=== PATIENT | female | born 1950 | race Caucasian/White ===

== ENCOUNTER 2025-01-07 08:44 | Inpatient (IN) | payer MEDICARE, SELFPAY ==
[2025-01-07] VITALS (36 sets, daily range): BP systolic 115–171; BP diastolic 53–92; PULSE 59–81; RESP 7–20; TEMP 36.1–36.2; O2SAT 94–98; BMI 28.9
[2025-01-07 10:02] LABS: Hemoglobin 7.1 g/dL (12.0-16.0); Mean Corpuscular HGB Conc 35.6 % (30-36); Mean Corpuscular Hemoglobin 30.8 PG (26-34); Mean Corpuscular Volume 86.7 fL (80-100); Platelet Count 130 X10^3/uL (150-400)
[2025-01-07 10:10] LABS: Hematocrit 19.9 % (36-46)
[2025-01-07] MEDS: SODIUM CHLORIDE 0.9% 1,000 ML 50 ML IV (10:11)
[2025-01-07 10:32] LABS: Blood Urea Nitrogen 24 mg/dL (7-17); Calcium 9.9 mg/dL (8.4-10.2); Carbon Dioxide 19 mmol/L (22-32); Chloride 95 mmol/L (98-107); Estimated Glomerular Filt Rate > 60 mL/min (>60); Glucose 103 mg/dL (70-99); HEMOLYSIS < 15 (0-50); Potassium 4.6 mmol/L (3.4-5.1)
[2025-01-07 10:39] LABS: Sodium 119 mmol/L (137-145)
[2025-01-07 13:45] LABS: MRSA (Nasal) PCR NOT DETECTED (Not Detect)
[2025-01-07 14:09] LABS: Hematocrit 22.9 % (36-46); Hemoglobin 8.0 g/dL (12.0-16.0)
[2025-01-07 14:20] LABS: Blood Urea Nitrogen 25 mg/dL (7-17); Calcium 10.8 mg/dL (8.4-10.2); Carbon Dioxide 21 mmol/L (22-32); Chloride 93 mmol/L (98-107); Estimated Glomerular Filt Rate > 60 mL/min (>60); Glucose 104 mg/dL (70-99); HEMOLYSIS < 15 (0-50); Potassium 5.1 mmol/L (3.4-5.1)
--- NOTE | 2025-01-07 14:22 | PM.HP.1 ---
History of Present Illness History of Present Illness Date Patient Seen: 01/07/25 Time Patient Seen: 10:00 Chief complaint: Hyponatremia Narrative: She was a 74-year-old female with a history of recurrent hyponatremia. She was seen at [facility] Emergency Department and transferred here as they had no available beds. Her sodium was a proximally 117. She lives in a local apartment with her . She had recently been discharged from inpatient rehab in [place] and had follow up blood tests drawn 2 days ago. These revealed a severe hyponatremia. She does have a history of recurrent hyponatremia going back several years. She was been eating very little over the last several weeks and having general failure to thrive and weakness. She had a TAVR and coronary stent in 2023 in [facility]. She was admitted to [place] recently for hyponatremia and had another admission to [facility] with a component of hyponatremia as well. Family is working on trying to centralize her care in 1 healthcare system, they are going to try to work with [facility]. The patient also has some cognitive impairment and is not very talkative. She denies any pain concerns. She does use a walker, or states that she has been doing relatively well with this. She does have chronic leg edema going back several years. She also has chronic anemia in his taking iron syrup, and iron infusions in the past. There was a discussion regarding recommendations for endoscopy when she was recently admitted at [facility]. She recently had her Brilinta discontinued by Cardiology which should allow for an endoscopy in the near future. [facility] Social History (Updated 01/07/25 @ 14:26 by Jamin Luna MD) marital status: details: Lives in [facility] with her . Her daughter is an urgent care physician assistant [facility] Medications and Allergies Home Medications ?Medication ?Instructions ?Recorded ?Confirmed ?Type acetaminophen 325 mg tablet 650 mg PO Q6H PRN pain 01/07/25 01/07/25 History (Aminofen) albuterol 90 mcg/actuation aerosol 90 mcg inhalation .Q4 PRN wheezing 01/07/25 01/07/25 History inhaler aspirin 81 mg capsule 81 mg PO DAILY 01/07/25 01/07/25 History calcium carbonate (Calcium 500) 1,000 mg PO DAILY 01/07/25 01/07/25 History cephalexin 250 mg capsule 250 mg PO DAILY 01/07/25 01/07/25 History cholecalciferol (vitamin D3) 25 1,000 unit PO DAILY 01/07/25 01/07/25 History mcg (1,000 unit) capsule doxazosin 4 mg tablet 4 mg PO DAILY 01/07/25 01/07/25 History escitalopram oxalate 5 mg tablet 5 mg PO DAILY 01/07/25 01/07/25 History (Lexapro) ferrous sulfate 15 mg PO DAILY 01/07/25 01/07/25 History furosemide 20 mg tablet 20 mg PO QAM 01/07/25 01/07/25 History hydrocodone 5 mg-acetaminophen 325 1 tab PO Q4H PRN moderate pain 01/07/25 01/07/25 History mg tablet levothyroxine 50 mcg tablet 50 mcg PO DAILY 01/07/25 01/07/25 History lidocaine 4 % topical patch 1 patch topical DAILY 01/07/25 01/07/25 History magnesium oxide 400 mg PO BEDTIME 01/07/25 01/07/25 History methocarbamol 500 mg tablet 500 mg PO BID 01/07/25 01/07/25 History Held on 01/07/25. Instructions: pt did not tolerate, sleepiness metoprolol succinate 25 mg 25 mg PO DAILY 01/07/25 01/07/25 History tablet,extended release 24 hr nifedipine 30 mg tablet,extended 30 mg PO DAILY 01/07/25 01/07/25 History release 24 hr nifedipine 60 mg tablet,extended 60 mg PO DAILY 01/07/25 01/07/25 History release 24 hr omeprazole 20 mg capsule,delayed 20 mg PO DAILY 01/07/25 01/07/25 History release rosuvastatin 20 mg tablet 20 mg PO ONCE PM 01/07/25 01/07/25 History valsartan 160 mg tablet 160 mg PO BID 01/07/25 01/07/25 History Allergies Allergy/AdvReac Type Severity Reaction Status Date / Time amoxicillin Allergy Severe tongue Verified 01/07/25 11:17 swelling ciprofloxacin Allergy tongue Verified 01/07/25 11:17 swelling codeine Allergy Verified 01/07/25 11:17 fluticasone Allergy Verified 01/07/25 11:17 Penicillins Allergy tongue Verified 01/07/25 11:17 swelling salmeterol Allergy Verified 01/07/25 11:17 Sulfa (Sulfonamide Allergy tongue Verified 01/07/25 11:17 Antibiotics) swelling atenolol AdvReac Verified 01/07/25 11:17 azithromycin AdvReac Verified 01/07/25 11:17 clopidogrel AdvReac Verified 01/07/25 11:17 diclofenac AdvReac Verified 01/07/25 11:17 hydralazine AdvReac Verified 01/07/25 11:17 ibuprofen AdvReac Verified 01/07/25 11:17 methocarbamol (From Robaxin) AdvReac Drowsy Verified 01/07/25 11:17 Review of Systems Review of Systems Narrative: All else reviewed and otherwise unremarkable except as noted in the history and physical. Exam Vital Signs (past 8 hours): - 01/07/25 09:20 01/07/25 10:02 01/07/25 10:44 Temperature 96.9 F L Pulse Rate 69 Respiratory Rate 15 Blood Pressure Pulse Oximetry 97 Oxygen Delivery Method Room Air 01/07/25 11:00 01/07/25 11:00 01/07/25 12:00 Temperature Pulse Rate 70 72 Respiratory Rate 17 17 Blood Pressure 132/64 Pulse Oximetry 97 98 Oxygen Delivery Method 01/07/25 12:00 01/07/25 12:30 01/07/25 13:00 Temperature Pulse Rate 80 Respiratory Rate 20 Blood Pressure 145/67 H 165/70 H Pulse Oximetry 96 Oxygen Delivery Method 01/07/25 13:00 01/07/25 13:30 01/07/25 14:00 Temperature Pulse Rate 78 79 79 Respiratory Rate 16 19 18 Blood Pressure Pulse Oximetry 96 95 96 Oxygen Delivery Method 01/07/25 14:00 Temperature Pulse Rate Respiratory Rate Blood Pressure 159/92 H Pulse Oximetry Oxygen Delivery Method Oxygen Delivery Method Room Air Narrative Exam Narrative: NAD, alert and oriented, fluent speech, calm. Normocephalic skull, EOMI, anicteric sclera, symmetric pupils. Oropharynx unremarkable, no droop. Neck supple, midline trachea, no adenopathy. Lungs clear, normal rate and effort. Heart regular, no murmur gallop or rub. Abdomen is soft, non distended and non tender. Extremities: Bilateral leg edema. Skin is free of rash or lesions. Joints are not swollen or deformed. Judgment appears to be normal. Objective Labs 01/07/25 09:55 01/07/25 09:55 Labs: Laboratory Results - last 24 hr 01/07/25 01/07/25 09:55 11:39 WBC 4.4 L RBC 2.30 L Hgb 7.1 L Hct 19.9 L* MCV 86.7 MCH 30.8 MCHC 35.6 RDW 16.5 H Plt Count 130 L Sodium 119 L* Potassium 4.6 Chloride 95 L Carbon Dioxide 19 L BUN 24 H Creatinine 0.77 Estimated GFR > 60 BUN/Creatinine Ratio 31.2 H Glucose 103 H Calcium 9.9 Nasal Screen MRSA (PCR) Not detected Assessment & Plan Assessment & Plan narrative: 1. Hyponatremia, present on admission and active. 2. Cognitive impairment, stable. 3. CAD with history of stenting, stable. 4. Chronic recurrent anemia and iron-deficiency, active. 5. Aortic stenosis with history of TAVR, 2023. Plan: -we will treat with saline at 50 mL/hour for solute deficiency and monitor BMP q.4 hours. -we will also monitor hemoglobin, anticipate a transfusion. She received 2 units of packed cells while at [facility] and a recent admission. -continue all other medications as able. -PT assessment, OT assessment. Anticipate that she will require transition to a rehabilitation center as she was had very great difficulty at home with her ongoing medical problems. Full code. Anticipate 2 midnights in the hospital, supports inpatient status. Has been and daughter proxy decision makers. Time-Based Coding :: 35 min spent with patient and on the chart (including review of chart, obtaining history, exam, reviewing outside data, placing orders, documenting exam and treatment plan, and counseling patient) on 01/07. Quality MIPS - Admit I confirm the patient?s Advance Care Plan is present, Code status is documented, Surrogate decision maker is in patient?s record [If Yes, STOP here]: Yes
[2025-01-07] MEDS: ACETAMINOPHEN 325 MG TABLET 650 MG PO (14:27)
[2025-01-07 14:33] LABS: Sodium 119 mmol/L (137-145)
[2025-01-07] MEDS: HYDROCODONE/ACET 5/325 TABLET 1 TAB PO ×2 (14:57→20:57)
[2025-01-07] MEDS: ESCITALOPRAM 10 MG TABLET 5 MG PO (15:22)
[2025-01-07] MEDS: VALSARTAN 80 MG TABLET 160 MG PO ×2 (15:22→20:56)
[2025-01-07] MEDS: METOPROLOL ER 25 MG TABLET PO (15:22)
[2025-01-07 15:49] LABS: Blood Urea Nitrogen 24 mg/dL (7-17); Calcium 10.6 mg/dL (8.4-10.2); Carbon Dioxide 21 mmol/L (22-32); Chloride 94 mmol/L (98-107); Estimated Glomerular Filt Rate > 60 mL/min (>60); Glucose 101 mg/dL (70-99); HEMOLYSIS < 15 (0-50); Potassium 4.8 mmol/L (3.4-5.1)
[2025-01-07 16:00] LABS: Sodium 118 mmol/L (137-145)
[2025-01-07 16:45] LABS: Appearance Urine UA SL CLOUDY; Bilirubin Urine UA NEGATIVE (NEGATIVE); Color Urine UA YELLOW; Glucose Urine UA NEGATIVE (Negative); Ketones Urine UA NEGATIVE (NEGATIVE); Leukocyte Esterase Urine UA 2+ (NEGATIVE); Nitrite Urine UA NEGATIVE (Negative); Occult Blood Urine UA 1+ (Negative); Protein Urine UA 1+ (Negative); Specific Gravity Urine UA 1.010 (1.000-1.035); Urobilinogen Urine UA 0.2 E.U./dL (0.2)
[2025-01-07 16:46] LABS: pH Urine UA 6.0 (4.5-8.0)
[2025-01-07 16:55] LABS: Culture Indicated Urine Specimen Cultured
[2025-01-07 19:37] LABS: Blood Urea Nitrogen 23 mg/dL (7-17); Calcium 10.5 mg/dL (8.4-10.2); Carbon Dioxide 21 mmol/L (22-32); Chloride 94 mmol/L (98-107); Estimated Glomerular Filt Rate > 60 mL/min (>60); Glucose 100 mg/dL (70-99); HEMOLYSIS < 15 (0-50); Potassium 4.9 mmol/L (3.4-5.1); Sodium 120 mmol/L (137-145)
[2025-01-07] MEDS: ATORVASTATIN 20 MG TABLET 40 MG PO (20:56)
[2025-01-07] MEDS: HEPARIN 5,000 UNIT/ML VIAL 5000 UNIT SUBCUT (20:56)
[2025-01-07 23:37] LABS: Blood Urea Nitrogen 23 mg/dL (7-17); Calcium 10.3 mg/dL (8.4-10.2); Carbon Dioxide 22 mmol/L (22-32); Chloride 96 mmol/L (98-107); Estimated Glomerular Filt Rate > 60 mL/min (>60); Glucose 84 mg/dL (70-99); HEMOLYSIS < 15 (0-50); Potassium 4.8 mmol/L (3.4-5.1)
[2025-01-07 23:38] LABS: Sodium 119 mmol/L (137-145)
[2025-01-08] VITALS (60 sets, daily range): BP systolic 142–182; BP diastolic 60–91; PULSE 58–98; RESP 8–24; TEMP 36.8–37.1; O2SAT 93–99
[2025-01-08] MEDS: SODIUM CHLORIDE 0.9% 1,000 ML 75 ML IV (01:39)
[2025-01-08] MEDS: HYDROCODONE/ACET 5/325 TABLET 1 TAB PO ×3 (03:05→20:17)
[2025-01-08] MEDS: ALBUTEROL 2.5 MG/3 ML NEB (ADULT) INH (03:39)
[2025-01-08] MEDS: PANTOPRAZOLE DR 20 MG TABLET PO (05:48)
[2025-01-08] MEDS: ACETAMINOPHEN 325 MG TABLET 650 MG PO ×2 (05:48→16:43)
[2025-01-08] MEDS: LEVOTHYROXINE 50 MCG TABLET PO (05:48)
[2025-01-08 07:05] LABS: Hematocrit 21.3 % (36-46); Hemoglobin 7.5 g/dL (12.0-16.0); Mean Corpuscular HGB Conc 35.4 % (30-36); Mean Corpuscular Hemoglobin 31.0 PG (26-34); Mean Corpuscular Volume 87.7 fL (80-100); Platelet Count 154 X10^3/uL (150-400)
[2025-01-08 07:13] LABS: Blood Urea Nitrogen 22 mg/dL (7-17); Calcium 10.4 mg/dL (8.4-10.2); Carbon Dioxide 21 mmol/L (22-32); Chloride 96 mmol/L (98-107); Estimated Glomerular Filt Rate > 60 mL/min (>60); Glucose 71 mg/dL (70-99); HEMOLYSIS 27 (0-50); Potassium 4.7 mmol/L (3.4-5.1); Sodium 120 mmol/L (137-145)
[2025-01-08] MEDS: VALSARTAN 80 MG TABLET 160 MG PO ×2 (08:45→20:38)
[2025-01-08] MEDS: ESCITALOPRAM 10 MG TABLET 5 MG PO (08:45)
[2025-01-08] MEDS: ASPIRIN EC 81 MG TABLET PO (08:45)
[2025-01-08] MEDS: HEPARIN 5,000 UNIT/ML VIAL 5000 UNIT SUBCUT ×2 (08:46→20:17)
[2025-01-08] MEDS: LIDOCAINE 5% PATCH 1 EACH TOP (08:46)
[2025-01-08] MEDS: METOPROLOL ER 25 MG TABLET PO (08:46)
--- NOTE | 2025-01-08 08:59 | P.PN_ITS ---
Subjective Subjective Interval history: Summary: She is a 74-year-old female with a history of recurrent hyponatremia. She was seen at [facility] Emergency Department and transferred here as they had no available beds. Her sodium was a proximally 117. She lives in a local apartment with her . She had recently been discharged from inpatient rehab in [place] and had follow up blood tests drawn 2 days ago. These revealed a severe hyponatremia. She does have a history of recurrent hyponatremia going back several years. She was been eating very little over the last several weeks and having general failure to thrive and weakness. She had a TAVR and coronary stent in 2023 in [facility]. She was admitted to [place] recently for hyponatremia and had another admission to [facility] with a component of hyponatremia as well. Family is working on trying to centralize her care in 1 healthcare system, they are going to try to work with [facility]. The patient also has some cognitive impairment and is not very talkative. She denies any pain concerns. She does use a walker, or states that she has been doing relatively well with this. She does have chronic leg edema going back several years. She also has chronic anemia in his taking iron syrup, and iron infusions in the past. There was a discussion regarding recommendations for endoscopy when she was recently admitted at [facility]. She recently had her Brilinta discontinued by Cardiology which should allow for an endoscopy in the near future. SIGNIFICANT EVENT: She developed probable flash pulmonary edema at about 1300 on January 08. She required oxygen for sats near 80%. Chest x-ray was suggestive of mild pulmonary edema. She was diuresed and improved rapidly. This happened after receiving saline at 50 mL an hour overnight. Echo reveals diastolic heart failure from [facility] and a repeat EF was obtained this morning with results pending. My wet read looks like she still has normal ventricular function. Discussion with Nephrology: I discussed this with [facility] Nephrology who reviewed her case at [facility]. At that time she presented with ANNEL and had a creatinine of 3.0. She also had evidence of SIADH with a urine sodium of 38 and osmolality 331 with a serum sodium of 129. Recommendations were to try diuresis with Lasix 20 IV b.i.d. and add urea powder 15 g daily. Unfortunately powders not available at this hospital. Fluid restriction at 1 L day was also recommended. S: Her breathing has improved after Lasix, she has some right knee pain. No other complaints. Exam Vital Signs (past 8 hours): - 01/08/25 01:00 01/08/25 01:01 01/08/25 01:01 Pulse Rate 58 L 60 Respiratory Rate 8 L 8 L Blood Pressure 153/66 H Pulse Oximetry 96 96 01/08/25 01:30 01/08/25 02:00 01/08/25 02:00 Pulse Rate 59 L 64 Respiratory Rate 8 L 8 L Blood Pressure 155/91 H Pulse Oximetry 96 96 01/08/25 02:30 01/08/25 03:00 01/08/25 03:00 Pulse Rate 64 72 Respiratory Rate 9 L 10 L Blood Pressure 182/85 H Pulse Oximetry 96 95 01/08/25 03:02 01/08/25 03:02 01/08/25 03:30 Pulse Rate 73 75 Respiratory Rate 11 L 17 Blood Pressure 158/69 H Pulse Oximetry 95 93 01/08/25 03:40 01/08/25 04:00 01/08/25 04:01 Pulse Rate 69 63 65 Respiratory Rate 9 L 9 L 8 L Blood Pressure Pulse Oximetry 96 95 94 01/08/25 04:01 01/08/25 04:30 01/08/25 05:00 Pulse Rate 62 70 Respiratory Rate 11 L 13 Blood Pressure 149/67 H Pulse Oximetry 95 98 01/08/25 05:00 01/08/25 05:30 01/08/25 06:00 Pulse Rate 73 Respiratory Rate 11 L Blood Pressure 155/67 H 156/72 H Pulse Oximetry 97 01/08/25 06:00 01/08/25 06:30 01/08/25 07:00 Pulse Rate 69 64 Respiratory Rate 8 L 12 Blood Pressure 142/67 H Pulse Oximetry 97 96 01/08/25 07:00 01/08/25 07:30 01/08/25 08:00 Pulse Rate 66 65 66 Respiratory Rate 11 L 12 9 L Blood Pressure Pulse Oximetry 96 96 97 01/08/25 08:00 01/08/25 08:30 01/08/25 08:46 Pulse Rate 80 78 Respiratory Rate 22 Blood Pressure 153/62 H 153/62 H Pulse Oximetry Oxygen Delivery Method Room Air Narrative Exam Narrative: NAD, alert and oriented. Fluent speech. On oxygen. Lungs are clear, normal rate and effort. Heart is regular, no murmur gallop or rub. Abdomen is soft, non distended. Extremities are free of edema. Objective Imaging ECHO:: Radiologist's impression: Pending. Chest x-ray: My impression: Possible mild pulmonary edema. Radiologist's impression: Moderate bilateral diffuse peribronchial thickening with patchy lower lobe opacities, some of which may be related expiratory result; however, bronchitis, viral infection, bronchopneumonia, asthma or other process should be considered. Mildly enlarged cardiopericardial silhouette. Prominent ling, pulmonary vascular congestion and/or hilar lymph nodes. Moderate calcifications of the aortic arch. Dual lead pacemaker with left-sided battery pack and aortic valve endograft prosthesis. Moderate degenerative changes bilateral shoulders and thoracic spine with several calcifications surrounding the right shoulder commonly loose bodies or other heterotopic calcifications. No pneumothorax, no pleural effusion, no lobar consolidation. IMPRESSION: Peribronchial thickening and patchy opacities as discussed above new. Other findings as above. Follow-up suggested. If symptoms persist or worsen, CT chest could be performed. Labs 01/08/25 04:30 01/08/25 12:10 Labs: Laboratory Results - last 24 hr 01/07/25 01/07/25 01/07/25 09:55 11:39 13:58 WBC 4.4 L RBC 2.30 L Hgb 7.1 L 8.0 L Hct 19.9 L* 22.9 L MCV 86.7 MCH 30.8 MCHC 35.6 RDW 16.5 H Plt Count 130 L Sodium 119 L* 119 L* Potassium 4.6 5.1 Chloride 95 L 93 L Carbon Dioxide 19 L 21 L BUN 24 H 25 H Creatinine 0.77 0.79 Estimated GFR > 60 > 60 BUN/Creatinine Ratio 31.2 H 31.6 H Glucose 103 H 104 H Calcium 9.9 10.8 H Urine Color Urine Appearance Urine pH Ur Specific [place] Urine Protein Urine Glucose (UA) Urine Ketones Urine Occult Blood Urine Nitrate Urine Bilirubin Urine Urobilinogen Ur Leukocyte Esterase Urine RBC Urine WBC Ur Squamous Epith Cells Urine Bacteria Ur Culture Indicated? Vol Urine Centrifuged Ur Random Sodium Nasal Screen MRSA (PCR) Not detected 01/07/25 01/07/25 01/07/25 15:24 16:12 19:05 WBC RBC Hgb Hct MCV MCH MCHC RDW Plt Count Sodium 118 L* 120 L Potassium 4.8 4.9 Chloride 94 L 94 L Carbon Dioxide 21 L 21 L BUN 24 H 23 H Creatinine 0.80 0.85 Estimated GFR > 60 > 60 BUN/Creatinine Ratio 30.0 H 27.1 H Glucose 101 H 100 H Calcium 10.6 H 10.5 H Urine Color Yellow Urine Appearance Sl cloudy Urine pH 6.0 Ur Specific [place] 1.010 Urine Protein 1+ H Urine Glucose (UA) Negative Urine Ketones Negative Urine Occult Blood 1+ H Urine Nitrate Negative Urine Bilirubin Negative Urine Urobilinogen 0.2 Ur Leukocyte Esterase 2+ H Urine RBC 1-5/hpf Urine WBC 30-100/hpf H Ur Squamous Epith Cells None seen Urine Bacteria Moderate (10-30) H Ur Culture Indicated? Specimen cultured Vol Urine Centrifuged Low vol <10ml (spun) A Ur Random Sodium 19 L Nasal Screen MRSA (PCR) 01/07/25 01/08/25 23:00 04:30 WBC 5.5 RBC 2.43 L Hgb 7.5 L Hct 21.3 L MCV 87.7 MCH 31.0 MCHC 35.4 RDW 16.2 H Plt Count 154 Sodium 119 L* 120 L Potassium 4.8 4.7 Chloride 96 L 96 L Carbon Dioxide 22 21 L BUN 23 H 22 H Creatinine 0.84 0.82 Estimated GFR > 60 > 60 BUN/Creatinine Ratio 27.4 H 26.8 H Glucose 84 71 Calcium 10.3 H 10.4 H Urine Color Urine Appearance Urine pH Ur Specific [place] Urine Protein Urine Glucose (UA) Urine Ketones Urine Occult Blood Urine Nitrate Urine Bilirubin Urine Urobilinogen Ur Leukocyte Esterase Urine RBC Urine WBC Ur Squamous Epith Cells Urine Bacteria Ur Culture Indicated? Vol Urine Centrifuged Ur Random Sodium Nasal Screen MRSA (PCR) [facility] Social History (Updated 01/07/25 @ 14:26 by Jamin Luna MD) marital status: details: Lives in [facility] with her . Her daughter is an special events assistant [employer] Assessment & Plan Assessment & Plan narrative: 1. Flash pulmonary edema (acute diastolic heart failure), new and active. 2. 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 3. Cognitive impairment, stable. 4. CAD with history of stenting, stable. 5. Chronic recurrent anemia and iron-deficiency, active. 6. Aortic stenosis with history of TAVR, 2023. Plan: -stop IV fluid -diuresis with Lasix 20 IV q.12 hours and monitor sodium. -fluid restriction at 1 L a day. -consider albumin 12.5 mg IV b.i.d. before Lasix if she fails to improve with straight diuresis. -PT assessment, OT assessment. Anticipate that she will require transition to a rehabilitation center as she was had very great difficulty at home with her ongoing medical problems. Full code. Anticipate 2 midnights in the hospital, supports inpatient status. Time-Based Coding :: [TOTAL MINUTES] spent with patient and on the chart (including review of chart, obtaining history, exam, reviewing outside data, placing orders, documenting exam and treatment plan, and counseling patient) on [DATE].
--- NOTE | 2025-01-08 09:01 | DI.ECHO.S_ITS ---
[facility] : : [address] : [place] [address] : : [id number] : : Phone: [phone] Echocardiogram Report + + :Name: SHAHIDA MATHEW I Study Date: 01/08/2025 Height: 61 in : :[facility] ReadingLocation: Weight: 153 lb : : Gender: Female BSA: 1.7 m2 : :: 1950 Age: 74 yrs BP: 144/60 mmHg: :Reason For Study: LEFT VENTRICULAR EJECTION FRACTION : :Ordering Physician: MARILUZ, : :BRIAN Molina Performed By: Samantha Choudhary : :Referring: BRIAN MCGRAW : + + Interpretation Summary This is a limited echocardiogram to evaluate wall motion and LV systolic function. Indeterminant rhythm with wide QRS complexes. Normal LV size and wall thickness. Normal wall motion and LV systolic function. Ejection fraction is 65-70%. Compared to prior echo November 11, 2024, LV function is stable. Procedure: A two-dimensional transthoracic echocardiogram with color flow and Doppler was performed in limited views only to assess ejection fraction. The study quality was technically adequate. Comparison is made with the echocardiogram of 11/11/2024. Left Ventricle: The left ventricle is normal in size and wall thickness. The ejection fraction is estimated to be 65-70%. Mitral Valve: There is moderate mitral annular calcification. The mitral valve chordae are thickened and/or calcified. Aortic Valve: There is a bioprosthetic aortic valve. There is mild intravalvular regurgitation through the prosthetic aortic valve. The peak aortic velocity is 2.4 m/sec. The aortic valve mean gradient is 12 mmHg. Tricuspid Valve: There is mild tricuspid regurgitation. The right ventricular systolic pressure is estimated to be at least 58 mmHg based on an estimated right atrial pressure of 3 mm Hg. There is moderate pulmonary hypertension. Pericardium/ Pleura There is no pericardial effusion. MMode/2D Measurements & Calculations LVIDd: 4.7 cm IVC diam: 1.8 cm LVIDs: 2.8 cm FS: 40.3 % IVSd: 0.94 cm LVPWd: 0.87 cm LV person. diameter/BSA (cm/m^2): 2.8 LV sys. diameter/BSA (cm/m^2): 1.7 Doppler Measurements & Calculations Ao V2 max: 243.0 cm/sec LVOT Max Monroe: 104.6 cm/sec Ao V2 mean: 166.1 cm/sec LV V1 max P.4 mmHg Ao max P.6 mmHg LV V1 VTI: 24.7 cm Ao mean P.3 mmHg sev ratio: 0.45 Ao V2 VTI: 55.0 cm TR max monroe: 370.9 cm/sec TR max P.0 mmHg Electronically signed by: Padmaja Zuñiga M.D. on Reading Physician:01/08/2025 05:06 PM
[2025-01-08] MEDS: SODIUM CHLORIDE 1,000 MG TABLET 1000 MG PO ×2 (09:28→20:18)
[2025-01-08] MEDS: MAGNESIUM HYDROXIDE 30 ML UDC PO (09:28)
[2025-01-08] MEDS: SENNOSIDES 8.6 MG TABLET PO (09:28)
[2025-01-08] MEDS: DOCUSATE 100 MG CAPSULE PO ×2 (09:28→20:16)
--- NOTE | 2025-01-08 10:44 | DIET.CONS ---
Dietary Consultation Note Admission Date: 01/07/2025 08:44 Assessment: 74 y F admitted for hyponatremia. Dietitian consulted for MNA score. Pt and reporting 50 lb weight loss within last year and decreased appetite. Eats about 60% or less of normal meal portions 3x/day. Ate half of breakfast sandwich this morning per spouse. PMH of hyponatremia, CAD, and anemia NFPE with mild muscle mass loss in temples. Ht: 154.94 cm Wt: 69.5 kg BMI: 28.9 UBW: -50 lb in last year (-20% weight loss within 1 year), per hospitalist note: hx of chronic leg edema Last BM: 01/06/25 (01/07/25 10:02) MNA: 6 Hudson Score: 15 Diet: 01/07/25 Lunch General (Regular) Diet Diet Modifications: Food Texture: Level 7 - Regular Liquid Consistency: Level 0 - Thin Nutrition Percent Meal Consumed 50% 01/07/25 18:00 Labs: RBC 2.43 X10^6/uL (4.0-5.2) L 01/08/25 04:30 Hgb 7.5 g/dL (12.0-16.0) L 01/08/25 04:30 Hct 21.3 % (36-46) L 01/08/25 04:30 Creatinine 0.82 mg/dL (0.52-1.04) 01/08/25 04:30 Nutrition Diagnosis: Moderate chronic protein calorie malnutrition r/t inadequate oral intakes as evidenced by 20% weight loss in 1 year (moderate), <60% of estimated energy needs for >6 months per diet recall (moderate), and mild muscle wasting in temples Interventions: -Doesn't tolerate Ensure, will trial protein shakes BID to support PO intakes, encouraged drinking after eating meals EER: 1500 kcals (22 kcals/kg per BMI) 70 g protein (18% kcals/1 g/kg per age) Monitoring/Evaluations: PO intakes Electronically Signed by: Melvi Saravia 01/08/25 10:44 Clinical Dietitian [address] [id number]
[2025-01-08 12:34] LABS: Blood Urea Nitrogen 22 mg/dL (7-17); Calcium 10.6 mg/dL (8.4-10.2); Carbon Dioxide 20 mmol/L (22-32); Chloride 97 mmol/L (98-107); Estimated Glomerular Filt Rate > 60 mL/min (>60); Glucose 89 mg/dL (70-99); HEMOLYSIS 16 (0-50); Potassium 4.7 mmol/L (3.4-5.1); Sodium 121 mmol/L (137-145)
--- NOTE | 2025-01-08 12:54 | PC.RNWOUND ---
Wound Care Nurse Skin Care Rounds check. With the help of patients nurse Beatriz, patient was turned. Removed Meplex Sacrum dressing. Area of non-blanchable redness measuring 7.0x7.0cm. There is a particle thickness ulcer on patient left buttock measuring 0.5x0.4x0.1cm. There is diffused areas of denuded skin. Cleaned area with disposable wipe, dried. Photo taken and placed a new Meplex border sacrum protective dressing. Also placed a Ultrasorb Advance 300 under patient and repositioned patient. Patient denies pain in her sacrum or buttocks.
--- NOTE | 2025-01-08 13:00 | DI.RAD.S_ITS ---
PROCEDURE: XR CHEST 1V INDICATIONS: Acute dyspnea TECHNIQUE: One view of the chest was acquired. COMPARISON: Chest x-ray 11/11/2024 FINDINGS: Moderate bilateral diffuse peribronchial thickening with patchy lower lobe opacities, some of which may be related expiratory result; however, bronchitis, viral infection, bronchopneumonia, asthma or other process should be considered. Mildly enlarged cardiopericardial silhouette. Prominent ling, pulmonary vascular congestion and/or hilar lymph nodes. Moderate calcifications of the aortic arch. Dual lead pacemaker with left-sided battery pack and aortic valve endograft prosthesis. Moderate degenerative changes bilateral shoulders and thoracic spine with several calcifications surrounding the right shoulder commonly loose bodies or other heterotopic calcifications. No pneumothorax, no pleural effusion, no lobar consolidation. IMPRESSION: Peribronchial thickening and patchy opacities as discussed above new. Other findings as above. Follow-up suggested. If symptoms persist or worsen, CT chest could be performed. Dictated by: Vidal Amaya M.D. on 01/08/2025 at 13:53 Approved by: Vidal Amaya M.D. on 01/08/2025 at 14:02
--- NOTE | 2025-01-08 13:01 | PC.NURSE ---
1255 Pt called, reports coughing and nausea. Pt assisted into sitting position, oxygenation noted at 83% on RA. 2L NC placed on pt, coarse crackles throughout on auscultation, sputum white, foamy and copious. O2 93% on 2L NC. Provider notified, provider Dr. Kyle Luna at bedside. New orders received. Care ongoing.
--- NOTE | 2025-01-08 13:09 | PC.RNWOUND ---
Photo from Skin Assessment 01/08/25
[2025-01-08] MEDS: ONDANSETRON 4 MG/2 ML INJ IV ×2 (13:25→20:16)
[2025-01-08] MEDS: FUROSEMIDE 40 MG/4 ML VIAL IV (13:25)
--- NOTE | 2025-01-08 13:32 | PT-IP ANOTE ---
PT consult received. PT reviewed chart and noted Hgb is 7.5 today. Checked in with nsg who reports treatment for sodium today and will hold off on PT. PT in agreement and unsure if pt if going to received blood or not.
--- NOTE | 2025-01-08 13:51 | OT.IPNOTE ---
Pt not medically ready for OT eval today, hold and check on the pt tomorrow.
--- NOTE | 2025-01-08 15:28 | PC.NURSE ---
Wound care consult placed. Dr. Damian and Kiera lawn caretaker nurse discussed wound care plan. Extra protective cream and Mepilex Border Sacrum used to help protect skin against excessive moisture.
--- NOTE | 2025-01-08 16:00 | CM.DANOTE ---
Initial DCP Assessment Note Pt is a 74 yo female, resident of [facility], admitted for ongoing medical management of acute diastolic heart failure and correction of hyponatremia. PCP: Unknown Payer: [facility] Met w/patient, spouse and daughter Doris. Patient has cognitive impairment and looks to her daughter to answer 100% of the questions. According to daughter: Patient has been hospitalized a number of times recently, daughter reviews a number of challenges they've had within the medical system. Patient has hx at [place] at [facility], [facility] beds and [facility] (less than 24 hrs). Patient had an orthopedic surgery months ago that resulted in patient needing to be non-weight bearing. Since that time, patient has experienced significant de-conditioning and has been requiring increased assistance at home. Patient and sp had been snowbirds, splitting time between [place] and [facility]. Sp cannot safely care for patient alone any longer. Family have placed a deposit on an assisted living apartment at [facility] assisted living in [facility] [phone]. Reviewed DC options. [facility] admission vs SNF; this SW team will help with dual planning with family's permission. Faxed SNF referral to [facility] via [employer]. Spoke with Jessica in admissions who is okay with patient returning, needs therapy notes to start auth. Still need to contact Dary Milan, high school assistant football coach ED, at [facility]. Daughter requests a signed doctor's note indicating that patient cannot safely return to her independent apt and needs additional care- this, reportedly, will help to cancel their lease at their senior apartment. Social work team following closely for coordination. Need PASRR for SNF. VINCENT Escoto Discharge Planning/Care Management CM Discharge Assessment Start: 01/07/25 10:02 Freq: Status: Active Protocol: Document 01/08/25 15:56 KEL[facility] (Rec: 01/08/25 16:00 KELVIN [id number]) Discharge Planning Assessment Assigned Discharge VINCENT Moise Obiee Lead Developer DPOA/Assigned Adolfo Saldana, spouse [phone] Doris Castillo, Designee Name daughter [phone] Advance Directives? Yes Advance Directives No on File Prior Living Apartment/Condo Arrangements Comment half-way apartment complex Household Members spouse Type of Relies on Others transporation used prior to admit Independent with ADL No 's Is patient alert and Yes: Looks to daughter to answer all questions oriented? Needs Assistance Bathing,Eating,Grooming,Meal Prep,Toileting,Managing With Medications,Home Chores / Shopping Comment Patient is extremely frail. Multiple recent hospitalizations, spine surgery months ago resulted in non-weight bearing and essentially being bed bound for 2 months. Very deconditioned. Patient/Family [facility] Facility Preference Comment Referral sent to [facility] per patient/family request
[2025-01-08 18:08] LABS: Blood Urea Nitrogen 22 mg/dL (7-17); Calcium 10.5 mg/dL (8.4-10.2); Carbon Dioxide 21 mmol/L (22-32); Chloride 97 mmol/L (98-107); Estimated Glomerular Filt Rate > 60 mL/min (>60); Glucose 106 mg/dL (70-99); HEMOLYSIS < 15 (0-50); Potassium 4.8 mmol/L (3.4-5.1); Sodium 122 mmol/L (137-145)
[2025-01-08] MEDS: FUROSEMIDE 20 MG/2 ML VIAL IV (20:16)
[2025-01-08] MEDS: ATORVASTATIN 20 MG TABLET 40 MG PO (20:17)
[2025-01-08 23:43] LABS: Blood Urea Nitrogen 23 mg/dL (7-17); Calcium 10.4 mg/dL (8.4-10.2); Carbon Dioxide 22 mmol/L (22-32); Chloride 97 mmol/L (98-107); Estimated Glomerular Filt Rate > 60 mL/min (>60); Glucose 124 mg/dL (70-99); HEMOLYSIS < 15 (0-50); Potassium 4.8 mmol/L (3.4-5.1); Sodium 121 mmol/L (137-145)
[2025-01-09] VITALS (61 sets, daily range): BP systolic 102–158; BP diastolic 51–124; PULSE 62–93; RESP 8–24; TEMP 36.1–36.9; O2SAT 93–98
[2025-01-09 05:35] LABS: Blood Urea Nitrogen 22 mg/dL (7-17); Calcium 10.4 mg/dL (8.4-10.2); Carbon Dioxide 21 mmol/L (22-32); Chloride 97 mmol/L (98-107); Estimated Glomerular Filt Rate > 60 mL/min (>60); Glucose 102 mg/dL (70-99); HEMOLYSIS < 15 (0-50); Potassium 4.6 mmol/L (3.4-5.1); Sodium 121 mmol/L (137-145)
[2025-01-09] MEDS: LEVOTHYROXINE 50 MCG TABLET PO (06:24)
[2025-01-09] MEDS: PANTOPRAZOLE DR 20 MG TABLET PO (06:24)
[2025-01-09] MEDS: HYDROCODONE/ACET 5/325 TABLET 1 TAB PO ×3 (06:24→21:35)
--- NOTE | 2025-01-09 07:55 | PM.PN.1 ---
Subjective Subjective Date Patient Seen: 01/09/25 Interval history: Her sodium remains unchanged at 121 with a potassium of 4.6 and a creatinine of 0.92. The calcium is 10.4. Her ejection fraction on the limited echocardiogram was 65-70%. The blood pressure is 157/70. The current plan is discharge to [facility] on 01/10 or 01/12 once bed availability and insurance approval arrives. Exam Vital Signs (past 8 hours): - 01/09/25 00:00 01/09/25 00:11 01/09/25 00:11 Temperature 98.4 F Pulse Rate 90 91 H Respiratory Rate 12 12 Blood Pressure 157/70 H Pulse Oximetry 94 01/09/25 00:30 01/09/25 01:00 01/09/25 01:30 Temperature Pulse Rate 85 78 78 Respiratory Rate 11 L 10 L 10 L Blood Pressure Pulse Oximetry 94 94 95 01/09/25 02:00 01/09/25 02:30 01/09/25 03:00 Temperature Pulse Rate 81 89 88 Respiratory Rate 11 L 12 12 Blood Pressure Pulse Oximetry 95 94 94 01/09/25 03:30 01/09/25 04:00 01/09/25 04:12 Temperature Pulse Rate 84 81 86 Respiratory Rate 11 L 12 15 Blood Pressure Pulse Oximetry 94 95 95 01/09/25 04:12 01/09/25 04:30 01/09/25 05:00 Temperature Pulse Rate 86 75 Respiratory Rate 11 L 11 L Blood Pressure 155/75 H Pulse Oximetry 95 95 01/09/25 05:30 01/09/25 06:00 01/09/25 06:30 Temperature Pulse Rate 79 83 92 H Respiratory Rate 11 L 11 L 13 Blood Pressure Pulse Oximetry 95 95 01/09/25 07:00 01/09/25 07:30 Temperature Pulse Rate 77 70 Respiratory Rate 11 L 9 L Blood Pressure Pulse Oximetry Oxygen Delivery Method Room Air Oxygen Flow Rate 2 Narrative Exam Narrative: Alert and oriented x3. No apparent distress. Very hard of hearing. Family are very attendant and interested. Heart is regular rate and rhythm without murmur Lungs are clear to auscultation bilaterally Abdomen is soft, bowel sounds positive, nontender, no organomegaly Trace bilateral pitting ankle edema Very severe hearing loss. Objective Labs 01/08/25 04:30 01/09/25 04:13 Labs: Laboratory Results - last 24 hr 01/08/25 01/08/25 01/08/25 12:10 17:43 22:58 Sodium 121 L 122 L 121 L Potassium 4.7 4.8 4.8 Chloride 97 L 97 L 97 L Carbon Dioxide 20 L 21 L 22 BUN 22 H 22 H 23 H Creatinine 0.85 0.89 0.91 Estimated GFR > 60 > 60 > 60 BUN/Creatinine Ratio 25.9 H 24.7 H 25.3 H Glucose 89 106 H 124 H Calcium 10.6 H 10.5 H 10.4 H 01/09/25 04:13 Sodium 121 L Potassium 4.6 Chloride 97 L Carbon Dioxide 21 L BUN 22 H Creatinine 0.92 Estimated GFR > 60 BUN/Creatinine Ratio 23.9 H Glucose 102 H Calcium 10.4 H PFSH Social History (Updated 01/09/25 @ 15:31 by Grzegorz Pérez MD) marital status: details: Lives in [facility] with her . Her daughter is an assistant corporation counsel prin household members: spouse Assessment & Plan Assessment & Plan narrative: 1. Flash pulmonary edema (acute diastolic heart failure), new and active. 2. 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 3. Cognitive impairment, stable. 4. CAD with history of stenting, stable. 5. Chronic recurrent anemia and iron-deficiency, active. 6. Aortic stenosis with history of TAVR, 2023. Plan: -diuresis with Lasix 20 IV q.12 hours and monitor sodium. -fluid restriction at 1 L a day. -consider albumin 12.5 mg IV b.i.d. before Lasix if she fails to improve with straight diuresis. -PT assessment, OT assessment. Anticipate that she will require transition to a rehabilitation center as she was had very great difficulty at home with her ongoing medical problems. -discharge to [facility] on 01/10 or 01/12 once bed availability and insurance approval arrives. Full code. Time-Based Coding :: [TOTAL MINUTES] spent with patient and on the chart (including review of chart, obtaining history, exam, reviewing outside data, placing orders, documenting exam and treatment plan, and counseling patient) on [DATE].
[2025-01-09] MEDS: VALSARTAN 80 MG TABLET 160 MG PO ×2 (09:22→21:35)
[2025-01-09] MEDS: SODIUM CHLORIDE 1,000 MG TABLET 1000 MG PO ×2 (09:23→21:35)
[2025-01-09] MEDS: ASPIRIN EC 81 MG TABLET PO (09:23)
[2025-01-09] MEDS: METOPROLOL ER 25 MG TABLET PO (09:23)
[2025-01-09] MEDS: HEPARIN 5,000 UNIT/ML VIAL 5000 UNIT SUBCUT ×2 (09:26→21:34)
[2025-01-09] MEDS: ESCITALOPRAM 10 MG TABLET 5 MG PO (09:26)
[2025-01-09] MEDS: SODIUM CHLORIDE 0.9% FLUSH 10 ML IV ×2 (09:27→21:34)
[2025-01-09] MEDS: FUROSEMIDE 20 MG/2 ML VIAL IV ×2 (09:27→21:34)
[2025-01-09] MEDS: LIDOCAINE 5% PATCH 1 EACH TOP (09:27)
--- NOTE | 2025-01-09 11:43 | OT.IP.EVAL ---
Current Diagnoses Hypo-osmolality and hyponatremia (01/07/25) Occupational Therapy Inpatient Evaluation/Re-Eval M1 PT/OT-IP Prior Functional Status Start: 01/09/25 11:55 Freq: NEEDED Status: Active Protocol: Document 01/09/25 11:56 [facility] (Rec: 01/09/25 12:20 [facility] Desktop) Medical Review Prior Functional Status Communication I Mobility and Gait Pt has not been up on her feet at least a couple months . Activities of Daily Pt has been needing assist for most ADL needs. Living and IADL's Prior Functional Pt's daughter and in the room and wanting pt to Level (Other details go to assisted living and have home health for therapy ) needs. Social History Household Members spouse Living Arrangements Apartment/Condo Additional Social Set-up no taken as pt planning to go to assisted living History Comment . M2 OT-IP Current Condition Start: 01/09/25 11:55 Freq: Status: Active Protocol: Document 01/09/25 11:56 [facility] (Rec: 01/09/25 12:20 [facility] Desktop) Occupational Therapy Current Condition Current Condition Evaluation Date 01/09/25 Treatment Diagnosis Hyponatremia Diagnosis Onset Date 01/07/25 Weight Bearing Status Weight Bearing Weight Bear as Tolerated Status Allowed Weight Pt's daughter states pt was see PT at home and using a Bearing Amount ( having extensive brace at extension if getting up on enter % or #) (%) her feet. PT-Umer had cleared it with the Ortho that pt can have the brace off in bed and when sitting on the edge of the bed and to lock into extension when on her feet. M3 OT- IP Subjective and Pain Start: 01/09/25 11:55 Freq: Status: Active Protocol: Document 01/09/25 11:56 [facility] (Rec: 01/09/25 12:20 [facility] Desktop) OT- Subjective Occupational Therapy Visit Type Type Initial Evaluation Visit Start Time 11:24 Visit Stop Time 11:53 Occupational Therapy Visit Comments Patient Comments Pt agreed to get up. PT , pt's daughter, , and nurse present in the room. Patient/Caregiver TO get better. Goals OT Pain Assessment Pain When Pain Assessed At Rest Pain Present Pain Present Pain Reported Location Left Leg Intensity 7 Scale Used Numeric (0 - 10) M4 OT- IP ADL's Start: 01/09/25 11:55 Freq: Status: Active Protocol: Document 01/09/25 11:56 [facility] (Rec: 01/09/25 12:20 [facility] Desktop) OT EOB-Bfkq-[id number] Comments OT Self-Feeding Not at meal time. Comments OT ADL-Grooming Comments OT Grooming Comments Not observed. OT ADL-Oral Care Comments Oral Care Comments Not observed. OT ADL-Dressing General Eval Lower Body Dressing Total Assistance Ability Areas Needing Socks Assistance Comments OT Dressing Comments Assist for socks. OT ADL-Toileting General Evaluation Toileting Ability Total Assistance Areas Needing Empty Catheter or Colostomy Assistance OT ADL-Bathing Comments OT Bathing Comments Sponge bath more appropriate at this time. M5 OT- IP IADL's Start: 01/09/25 11:55 Freq: Status: Active Protocol: Document 01/09/25 11:56 [facility] (Rec: 01/09/25 12:20 [facility] Desktop) OT-Instrumental Activities of Daily Living Medication Management Medication Caregiver Administers Management Money Management Money Management Caregiver Provides Assistance Meal Preparation Meal Preparation Caregiver Provides Assist Human Services Program Specialist Human Services Program Specialist Caregiver Provides Assist M6 OT- IP Functional Cognition Start: 01/09/25 11:55 Freq: Status: Active Protocol: Document 01/09/25 11:56 [facility] (Rec: 01/09/25 12:20 [facility] Desktop) Cognitive Factors Limiting Selfcare Function Cognitive Ability Level of Alertness Alert Patient Orientation Name,Place Attention Span Capable of Focused Attention,Capable of Sustained Ability Attention Ability to Follow Able to Follow One Step Commands Commands Cognitive Comments Cognitive Assessment Pt able to follow commands for ADL and mobility needs. Comments OT- Vision and Hearing OT- Hearing Assessment OT- Hearing Hearing Impaired,Use of Hearing Aids Assessment OT- Vision Assessment Visual Acuity Glasses All The Time Visual Attentiveness WFL Occular Pursuits WFL M7 OT- IP Mobility and Balance Start: 01/09/25 11:55 Freq: Status: Active Protocol: Document 01/09/25 11:56 [facility] (Rec: 01/09/25 12:20 [facility] Desktop) OT- Bed Mobility Assessment Rolling Level of Assistance Maximum Assistance Supine to Sit Supine to Sit Assist Maximum Assistance,2 Person Assistance,Bedrails Sit to Supine Sit to Supine Assist Maximum Assistance,2 Person Assistance,Bedrails Scooting Scooting to Edge of Maximum Assistance,2 Person Assistance,Bedrails Bed OT-Transfer Assessment Sit to and From Stand Sit to and from Maximum Assistance,2 Person Assistance Stand Comments Mobility Comments Pt able to assist to move her legs to the bed and also able to raise her hips to move as well in addition to the green pad to assist. MAX AX 2 to get upright to the edge of bed. MAX AX 2 to stand to the FWW and nurse able to hold the FWW in place. Pt able to stand for around 20 seconds with assist to keep her trunk upright . PT able to lock her LLE brace into extension while standing. OT- Balance Assessment Sitting Balance and Reactions Static Sitting Fair Balance Ability Dynamic Sitting Poor Balance Ability Standing Balance and Reactions Static Standing Poor Balance Ability M8 OT- IP Objective Assessments Start: 01/09/25 11:55 Freq: Status: Active Protocol: Document 01/09/25 11:56 [facility] (Rec: 01/09/25 12:20 [facility] Desktop) OT Gross Range of Motion Upper Extremity Range of Motion ROM Impairments Decreased at end ROM. OT Strength Comments Strength Comments BUE shoulder to distal 4-/5 to 4/5. M9 OT- IP Assessment and Plan Start: 01/09/25 11:55 Freq: Status: Active Protocol: Document 01/09/25 11:56 [facility] (Rec: 01/09/25 12:20 [facility] Desktop) OT Summary Assessment and Plan Potential Rehabilitation Good Potential Analytic Complexity High at Evaluation Summary OT Impairments Pain,Strength,Balance,Functional Mobility,Self-Feeding, Grooming,Dressing,Toileting,Bathing,Toilet Transfers, Shower Transfers,Activity Tolerance Progress Towards Progressing Toward Goals,Slow Progress due to Pain,Slow Goals Progress due to Medical Issues,Slow Progress due to Activity Tolerance Assessment Summary Pt high complexity and main barriers are pain, decreased strength, endurance, and activity tolerance. Per pt's daughter has not be up on her feet for a couple months and today able to stand with MAX AX 2 with FW and nursing assist to hold the FWW in place. Pt would benefit from skilled rehab , however place for pt to go to assisted living and home health therapies. Goals Self-Feeding Goal Independent Grooming Goal Independent Dressing Goal Moderate Assistance Bathing Goal Moderate Assistance Toilet Transfer Goal Moderate Assistance Shower Transfer Goal Moderate Assistance Days to Meet Goals 25 Frequency of Treatment Other frequency 5x/week Treatment Plan OT Treatment Plan ADL Training,Functional Mobility,Patient/Family Education,Discharge Planning Other Treatment Transfer with FWW with MAX AX 2 to [facility]. Recommendations and Next Treatment Focus Discharge Recommendations OT Discharge SNF Rehab Recommendations Other Discharge Pt's family plans for pt to go to assisted living with Recommendations home health. Transportation Needs Wheelchair/Cabulance at Discharge
--- NOTE | 2025-01-09 12:30 | PT.IIE ---
Current Diagnoses Hypo-osmolality and hyponatremia (01/07/25) Physical Therapy Inpatient Evaluation/Re-Eval M1 PT/OT-IP Prior Functional Status Start: 01/09/25 11:55 Freq: NEEDED Status: Active Protocol: Document 01/09/25 11:56 [facility] (Rec: 01/09/25 12:20 [facility] Desktop) Medical Review Prior Functional Status Communication I Mobility and Gait Pt has not been up on her feet at least a couple months . Activities of Daily Pt has been needing assist for most ADL needs. Living and IADL's Prior Functional Pt's daughter and in the room and wanting pt to Level (Other details go to assisted living and have home health for therapy ) needs. Social History Household Members spouse Living Arrangements Apartment/Condo Additional Social Set-up no taken as pt planning to go to assisted living History Comment . M1 PT/OT-IP Prior Functional Status Start: 01/09/25 12:00 Freq: NEEDED Status: Active Protocol: Document 01/09/25 12:02 [employer] (Rec: 01/09/25 12:29 [employer] [id number]) Medical Review Prior Functional Status Medical History Yes Reviewed Mobility and Gait Per daughter: d/t recent LLE injury, pt was recently in swing bed rehab and has not amb for months. Requires assist with FWW at baseline Social History Household Members spouse Living Arrangements Apartment/Condo Number of Floors ( One Floor Floors) Number of Stairs To longterm apartment Enter/Railing? M2 PT-IP Current Condition Start: 01/09/25 12:00 Freq: NEEDED Status: Active Protocol: Document 01/09/25 12:02 [employer] (Rec: 01/09/25 12:29 [employer] [id number]) Physical Therapy Current Condition Current Condition Evaluation Date 01/09/25 Treatment Diagnosis severe hyponatremia with global weakness M3 PT-IP Subjective Start: 01/09/25 12:00 Freq: NEEDED Status: Active Protocol: Document 01/09/25 12:02 [employer] (Rec: 01/09/25 12:29 [employer] [id number]) Subjective Physical Therapy Visit Type Type Initial Evaluation Visit Start Time 11:24 Visit Stop Time 11:53 Therapy Pain Assessment Pain When Pain Assessed At Rest Pain Present Pain Present Pain Reported Location Left Leg Intensity 6 Scale Used Numeric (0 - 10) M4 PT-IP Mobility and Gait Start: 01/09/25 12:00 Freq: NEEDED Status: Active Protocol: Document 01/09/25 12:02 [employer] (Rec: 01/09/25 12:29 [employer] [id number]) PT-Bed Mobility Assessment Rolling Type of Rolling Bilateral Level of Assist Maximal Assistance,1 Person Assistance Supine to Sit Supine to Sit Maximum Assistance,2 Person Assistance Sit to Supine Sit to Supine Maximum Assistance,2 Person Assistance Scooting Scooting to Edge of Maximum Assistance Bed Scooting Up and Down Maximum Assistance in Bed PT-Transfer Assessment Sit to and From Stand Sit to and from Maximum Assistance,2 Person Assistance Stand Equipment Transfer Assistive Front Wheeled Walker Device Comments Mobility Comments sit<>stand with static standing at EOB for ~20s with LLE hinge knee brace locked into ext after standing up PT-Balance Assessment Sitting Balance and Reactions Static Sitting Fair Balance Ability Dynamic Sitting Fair Balance Ability Standing Balance and Reactions Static Standing Poor Balance Ability Dynamic Standing Poor Balance Ability M5 PT-IP Objective Assessments Start: 01/09/25 12:00 Freq: NEEDED Status: Active Protocol: Document 01/09/25 12:02 [employer] (Rec: 01/09/25 12:29 [employer] [id number]) Orientation Orientation/Cognition Level of Alertness Alert Orientation Name,Place Safety Awareness Decreased Safety Awareness Memory Description Short Term Impaired Gross Range of Motion Lower Extremity ROM Assessment Within Functional Limits Impairments RLE decreased full knee ext Strength Lower Extremity Strength Assessment Bilaterally Impaired Comments Strength Comments grossly 2+ to 3-/5 M7 PT-IP Assessment and Plan Start: 01/09/25 12:00 Freq: NEEDED Status: Active Protocol: Document 01/09/25 12:02 [employer] (Rec: 01/09/25 12:29 [employer] [id number]) PT Summary Assessment and Plan Potential Rehabilitation Fair Potential Status of Condition Stable at Evaluation Summary Impairments Pain,ROM,Strength,Balance,Cognition,Bed Mobility, Transfers,Gait,Activity Tolerance Assessment Summary Nurse administered pain meds prior to session. Pt tolerated supine<>sit, static sitting at EOB, and sit<> stand at EOB with max x3 assist for safety and FWW for 20s. L hinge knee brace unlocked during bed mobility and sitting, locked into full ext once standing. Pt is cooperative and assists with all mobility. Goals Bed Mobility Goal Minimal Assistance Transfer Goal Maximal Assistance,Front Wheeled Walker Gait Goal Maximal Assistance,Front Wheel Walker Gait Distance 5 Days to Meet Goals 7 Frequency of Treatment Frequency Of Once a Day Treatment Treatment Plan Physical Therapy Bed Mobility Training,Transfer Training,Gait Training, Treatment Plan Therapeutic Exercise,Balance Retraining,Discharge Planning,Neuromuscular Re-ed Precautions Brace Per daughter reporting doctors instructions: no ROM or exercise restrictions, LLE WBAT, hinge knee brace to be worn locked in ext during standing and gait, can bend knee for sit<>stands Weight Bearing Status Weight Bearing Weight Bear as Tolerated Status Recommendations To Nursing Amount of Assist 2 Person Assist,Mechanical Lift Needed Discharge Recommendations PT Discharge SNF Rehab Recommendations Other Discharge Pt would benefit from PT in SNF rehab with plans to go Recommendations to [facility] to maximize mobility for transfers, however family requests [facility] with PT. Transportation Needs Wheelchair/Cabulance at Discharge
--- NOTE | 2025-01-09 14:16 | DIET.PN1 ---
Dietary Progress Note Assessment: Spoke with family on pt's food preferences. Would like additions like cottage cheese, cheese, and yogurt to help support intakes over any supplement drinks. Protein based food option added to meals TID. Preferences coordinated with unit host: doesn't like eggs or fatty meats or oatmeal in morning Ht: 154.94 cm Wt: 69.5 kg BMI: 28.9 Last BM: 01/06/25 (01/07/25 10:02) MNA: 6 Hudson Score: 16 Diet: 01/08/25 Dinner Fluid Restriction Diet Diet Modifications: Total fluid amount: 1,000 Amount allotted to patient trays: 600 Free water included in total: Yes Fluid in addition to trays: 2296-2177 amount: 500 8130-2822 amount: 500 Food Texture: Level 7 - Regular Liquid Consistency: Level 0 - Thin Nutrition Percent Meal Consumed 25% 01/08/25 17:49 Percent Meal Consumed 50% 01/07/25 18:00 Labs: RBC 2.43 X10^6/uL (4.0-5.2) L 01/08/25 04:30 Hgb 7.5 g/dL (12.0-16.0) L 01/08/25 04:30 Hct 21.3 % (36-46) L 01/08/25 04:30 Creatinine 0.92 mg/dL (0.52-1.04) 01/09/25 04:13 Electronically Signed by: Melvi Saravia 01/09/25 14:16 Clinical [address] [address]
--- NOTE | 2025-01-09 15:19 | CM.DPNOTE ---
DCP Cont According to discussion in multidisciplinary rounds this morning; Dr Stevens is recommending PICC be placed 48 hrs after +blood culture (tomorrow 01/10) and patient have either 2 weeks IV ampicillin 2g every 4 hours or if going home, Q24 IV daptomycin . Reviewed plan with patient and her daughter Ora; lengthy conversation reviewing all possible discharge plan options, including home w/hospice. Patient/daughter inevitably request the following: Discharge to [facility] for therapies and IV abc once insurance auth is secured with referral to [facility] to assist with future planning. In contact with Codie at [facility] throughout the day; emailed updated therapy notes. Still need updated MD note outlining outpatient IV abx treatment plan. Dr Stevens will be following patient once discharged. Hospital exempt PASRR completed and signed. Plan: Discharge to [facility] once insurance auth is secured, via [facility] van. New referral sent via [facility] today. SW team following closely for coordination. KELVIN
--- NOTE | 2025-01-09 15:38 | CM.DPNOTE ---
DCP Cont Update from patient's sp and daughter; they would like patient to discharge to [facility] assisted living facility in [place], NOT to [facility]. [facility] updated. Spoke with Dary Milan at [facility] P [phone] who explained patient is okay to admit to [facility]. Dary sending move in paperwork to patient's daughter. They will need signed med list at discharge. Sent face sheet, H+P, prog note and therapy notes to Dary at [facility] [phone]. Daughter provided with a signed note from Dr Pérez stating that patient is not appropriate for return to her independent intermediate apt (to assist in getting their deposit back-lease). Plan: Discharge likely over the next 24-48 hrs to [facility], coordinate with Erum Reagan [phone], fax DC Summary and signed med list when available, family likely to transport. Also- family will need to get furniture into patient's new [facility] apt. KELVIN
[2025-01-09] MEDS: ATORVASTATIN 20 MG TABLET 40 MG PO (21:35)
[2025-01-10] VITALS (58 sets, daily range): BP systolic 130–175; BP diastolic 64–78; PULSE 63–80; RESP 8–19; TEMP 35.9–36.5; O2SAT 95–98
[2025-01-10] MEDS: HYDROCODONE/ACET 5/325 TABLET 1 TAB PO ×3 (05:35→20:40)
[2025-01-10] MEDS: PANTOPRAZOLE DR 20 MG TABLET PO (05:36)
[2025-01-10] MEDS: LEVOTHYROXINE 50 MCG TABLET PO (05:46)
[2025-01-10] MEDS: HEPARIN 5,000 UNIT/ML VIAL 5000 UNIT SUBCUT ×2 (08:11→20:39)
[2025-01-10] MEDS: LIDOCAINE 5% PATCH 1 EACH TOP (08:11)
[2025-01-10] MEDS: FUROSEMIDE 20 MG/2 ML VIAL IV ×2 (08:13→20:40)
[2025-01-10] MEDS: VALSARTAN 80 MG TABLET 160 MG PO ×2 (08:13→20:41)
[2025-01-10] MEDS: ESCITALOPRAM 10 MG TABLET 5 MG PO (08:13)
[2025-01-10] MEDS: SODIUM CHLORIDE 1,000 MG TABLET 1000 MG PO ×2 (08:13→20:41)
[2025-01-10] MEDS: ASPIRIN EC 81 MG TABLET PO (08:14)
[2025-01-10] MEDS: DOCUSATE 100 MG CAPSULE PO ×2 (08:14→20:41)
[2025-01-10] MEDS: METOPROLOL ER 25 MG TABLET PO (08:14)
[2025-01-10] MEDS: SODIUM CHLORIDE 0.9% FLUSH 10 ML IV ×2 (08:14→20:40)
--- NOTE | 2025-01-10 11:42 | CM.DPNOTE ---
DCP note ENAMEL CRACKER reviewed EMR per provider in morning rounds anticipate dc Sunday vs Sunday. ENAMEL CRACKER met with pt and spouse in room. introduced self and role. spouse reports dtr getting furniture for [facility] moved in today and tomorrow. unsure preference. okay to send to [facility] for now and dtr will f/u. PCP Dr. Acosta(?) from [facility]. interested in resident care associate referral? confirm family to transport at ok. ENAMEL CRACKER emailed initial referral to [facility]. f2f done, order needed P: dc Sunday to [facility]. see additional CM notes for contacts. CM team will continue to follow closely for DCP Coordination VINCENT Rob
--- NOTE | 2025-01-10 12:24 | PT-IP ANOTE ---
PT reviews PT eval yesterday. Pt has not been OOB at [facility] and will d/c back to [facility] with HH. Pt required +2 assistance for bed mobility yesterday and will require total lift for OOB in the acute setting. Pt is at her functional baseline and PT speaks with SW and will d/c acute PT. Recommend OOB to chair with total lift and nsg in the hospital.
--- NOTE | 2025-01-10 12:31 | P.PN_ITS ---
Subjective Subjective Date Patient Seen: 01/10/25 Interval history: Chief complaint: History of present illness: 01/07: 74-year-old female with a history of recurrent hyponatremia. She was seen at [facility] Emergency Department and transferred here as they had no available beds. Her sodium was a proximally 117. She lives in a local apartment with her . She had recently been discharged from inpatient rehab in [place] and had follow up blood tests drawn 2 days ago. These revealed a severe hyponatremia. She does have a history of recurrent hyponatremia going back several years. She was been eating very little over the last several weeks and having general failure to thrive and weakness. She had a TAVR and coronary stent in 2023 in [facility]. She was admitted to [place] recently for hyponatremia and had another admission to [facility] with a component of hyponatremia as well. Family is working on trying to centralize her care in 1 healthcare system, they are going to try to work with [facility]. The patient also has some cognitive impairment and is not very talkative. She denies any pain concerns. She does use a walker, or states that she has been doing relatively well with this. She does have chronic leg edema going back several years. She also has chronic anemia in his taking iron syrup, and iron infusions in the past. There was a discussion regarding recommendations for endoscopy when she was recently admitted at [facility]. She recently had her Brilinta discontinued by Cardiology which should allow for an endoscopy in the near future. Hospital course: 01/08: SIGNIFICANT EVENT: She developed probable flash pulmonary edema at about 1300 on January 08. She required oxygen for sats near 80%. Chest x-ray was suggestive of mild pulmonary edema. She was diuresed and improved rapidly. This happened after receiving saline at 50 mL an hour overnight. Echo reveals diastolic heart failure from [facility] and a repeat EF was obtained this morning with results pending. My wet read looks like she still has normal ventricular function. Discussion with Nephrology: I discussed this with [facility] Nephrology who reviewed her case at [facility]. At that time she presented with ANNEL and had a creatinine of 3.0. She also had evidence of SIADH with a urine sodium of 38 and osmolality 331 with a serum sodium of 129. Recommendations were to try diuresis with Lasix 20 IV b.i.d. and add urea powder 15 g daily. Unfortunately powders not available at this hospital. Fluid restriction at 1 L day was also recommended. Her breathing has improved after Lasix, she has some right knee pain. No other complaints. 01/09: Her sodium remains unchanged at 121 with a potassium of 4.6 and a creatinine of 0.92. The calcium is 10.4. Her ejection fraction on the limited echocardiogram was 65-70%. The blood pressure is 157/70. The current plan is discharge to [facility] on 01/10 or 01/12 once bed availability and insurance approval arrives. 01/10: Fairly well but sodium still 121 Review of systems: Physical exam: Echocardiogram: Normal LV size and wall thickness. Normal wall motion and LV systolic function. Ejection fraction is 65-70%. Compared to prior echo November 11, 2024, LV function is stable. Assessment and plan: 1. Flash pulmonary edema (acute diastolic heart failure), new and active. * Cautious with volume load 2. 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 * Fluid restriction Lasix and salt tablets 3. Cognitive impairment, stable. 4. CAD with history of stenting, stable. 5. Chronic recurrent anemia and iron-deficiency, active. 6. Aortic stenosis with history of TAVR, 2023. Plan: -diuresis with Lasix 20 IV q.12 hours and monitor sodium. -fluid restriction at 1 L a day. -consider albumin 12.5 mg IV b.i.d. before Lasix if she fails to improve with straight diuresis. -PT assessment, OT assessment. Anticipate that she will require transition to a rehabilitation center as she was had very great difficulty at home with her ongoing medical problems. -discharge to [facility] on 01/10 or 01/12 once bed availability and insurance approval arrives. Full code. Time-Based Coding :: 35 minutes spent with patient and on the chart (including review of chart, obtaining history, exam, reviewing outside data, placing orders, documenting exam and treatment plan, and counseling patient) Exam Vital Signs (past 8 hours): - 01/10/25 05:00 01/10/25 05:30 01/10/25 06:00 Temperature Pulse Rate 77 76 72 Respiratory Rate 10 L 12 10 L Blood Pressure Pulse Oximetry 95 95 Oxygen Delivery Method Oxygen Flow Rate 01/10/25 06:30 01/10/25 07:00 01/10/25 07:00 Temperature Pulse Rate 63 68 Respiratory Rate 11 L 8 L Blood Pressure Pulse Oximetry Oxygen Delivery Method Room Air Oxygen Flow Rate 01/10/25 07:30 01/10/25 07:47 01/10/25 07:47 Temperature Pulse Rate 80 73 Respiratory Rate 14 13 Blood Pressure 139/64 Pulse Oximetry 97 Oxygen Delivery Method Oxygen Flow Rate 01/10/25 08:00 01/10/25 08:44 Temperature 97.7 F Pulse Rate 72 72 Respiratory Rate 13 Blood Pressure 139/64 130/70 Pulse Oximetry 97 Oxygen Delivery Method Oxygen Flow Rate 0 Oxygen Delivery Method Room Air Oxygen Flow Rate 0 Objective Labs 01/08/25 04:30 01/09/25 04:13 Labs: Laboratory Results - last 24 hr 01/08/25 10:45 Urine Osmolality 348 [facility] Social History (Updated 01/09/25 @ 15:31 by Grzegorz Pérez MD) marital status: details: Lives in [facility] with her . Her daughter is an power plant assistant prin household members: spouse Assessment & Plan Time-Based Coding :: [TOTAL MINUTES] spent with patient and on the chart (including review of chart, obtaining history, exam, reviewing outside data, placing orders, documenting exam and treatment plan, and counseling patient) on [DATE].
[2025-01-10 16:09] LABS: Appearance Urine UA CLEAR; Bilirubin Urine UA NEGATIVE (NEGATIVE); Color Urine UA YELLOW; Glucose Urine UA NEGATIVE (Negative); Ketones Urine UA NEGATIVE (NEGATIVE); Leukocyte Esterase Urine UA TRACE (NEGATIVE); Nitrite Urine UA NEGATIVE (Negative); Occult Blood Urine UA NEGATIVE (Negative); Protein Urine UA 1+ (Negative); Specific Gravity Urine UA 1.015 (1.000-1.035); Urobilinogen Urine UA 0.2 E.U./dL (0.2)
[2025-01-10 16:15] LABS: pH Urine UA 5.5 (4.5-8.0)
[2025-01-10 16:16] LABS: Culture Indicated Urine Specimen Cultured
[2025-01-10] MEDS: ACETAMINOPHEN 325 MG TABLET 650 MG PO (16:38)
[2025-01-10] MEDS: ATORVASTATIN 20 MG TABLET 40 MG PO (20:41)
[2025-01-10] MEDS: REMOVE LIDOCAINE PATCH 1 EACH TOP (20:41)
[2025-01-11] VITALS (17 sets, daily range): BP systolic 148–191; BP diastolic 68–78; PULSE 64–73; RESP 10–22; TEMP 36.2–36.6; O2SAT 94–96
[2025-01-11] MEDS: HYDROCODONE/ACET 5/325 TABLET 1 TAB PO ×3 (04:12→20:26)
[2025-01-11] MEDS: PANTOPRAZOLE DR 20 MG TABLET PO (05:49)
[2025-01-11] MEDS: LEVOTHYROXINE 50 MCG TABLET PO (05:49)
[2025-01-11 06:23] LABS: Blood Urea Nitrogen 26 mg/dL (7-17); Calcium 10.4 mg/dL (8.4-10.2); Carbon Dioxide 23 mmol/L (22-32); Chloride 98 mmol/L (98-107); Estimated Glomerular Filt Rate > 60 mL/min (>60); Glucose 99 mg/dL (70-99); HEMOLYSIS < 15 (0-50); Potassium 4.5 mmol/L (3.4-5.1); Sodium 123 mmol/L (137-145)
[2025-01-11] MEDS: FUROSEMIDE 20 MG/2 ML VIAL IV (08:30)
[2025-01-11] MEDS: DOCUSATE 100 MG CAPSULE PO ×2 (08:31→20:26)
[2025-01-11] MEDS: METOPROLOL ER 25 MG TABLET PO (08:31)
[2025-01-11] MEDS: ESCITALOPRAM 10 MG TABLET 5 MG PO (08:31)
[2025-01-11] MEDS: AMLODIPINE 5 MG TABLET 2.5 MG PO ×2 (08:31→20:27)
[2025-01-11] MEDS: SODIUM CHLORIDE 1,000 MG TABLET 1000 MG PO ×2 (08:31→20:26)
[2025-01-11] MEDS: ASPIRIN EC 81 MG TABLET PO (08:31)
[2025-01-11] MEDS: HEPARIN 5,000 UNIT/ML VIAL 5000 UNIT SUBCUT ×2 (08:32→20:26)
[2025-01-11] MEDS: SODIUM CHLORIDE 0.9% FLUSH 10 ML IV ×2 (08:32→20:27)
[2025-01-11] MEDS: LIDOCAINE 5% PATCH 1 EACH TOP (08:32)
[2025-01-11] MEDS: VALSARTAN 80 MG TABLET 160 MG PO (08:36)
--- NOTE | 2025-01-11 12:19 | CM.DPC ---
DCP [facility] Cont: Per MD, pt slowly improving with ongoing plan of d/c to [facility] in [place] likely tomorrow 01/12. ARTURO spoke to Elisabeth at [facility] ([phone]) and she confirms that Dtr moved in furniture and prepared pt's new room at their facility and they anticipate accepting pt tomorrow 01/12 and aware that family setting up transport to their facility and request is to have pt there before 1700. Elisabeth confirms that they just need the signed med list and d/c summary faxed to them at d/ and family plans to fill pt's prescriptions at [facility] and bring to pt at their facility at d/c. Elisabeth requesting [facility] RN/PT/OT for pt admission. ARTURO met bedside with pt and spouse and explained role and son confirms that their preference is [facility] at [facility] as well and very appreciative of DCP setting up and coordinating. Spouse confirms that they have used [facility] [facility] before and plan to try to get ahold of them today to set up transport for pt tomorrow 01/12 and aware now that ideally supportability engineer around 1100 if available but mostly just need pt at [facility] prior to 1700. [facility] referral previously made by DCP yesterday and F2F completed today but will need HH orders at d/c. Plan: SW to follow for plan of discharge to [facility] tomorrow 01/12 via family private pay cabulance and [facility] to follow. SW to fax signed med list and d/c summary to [facility] and keep them updated on time of transport. VINCENT Elam
--- NOTE | 2025-01-11 14:30 | P.PN_ITS ---
Subjective Subjective Date Patient Seen: 01/11/25 Interval history: Chief complaint: Hyponatremia and weakness History of present illness: 01/07: 74-year-old female with a history of recurrent hyponatremia. She was seen at [facility] Emergency Department and transferred here as they had no available beds. Her sodium was a proximally 117. She lives in a local apartment with her . She had recently been discharged from inpatient rehab in [place] and had follow up blood tests drawn 2 days ago. These revealed a severe hyponatremia. She does have a history of recurrent hyponatremia going back several years. She was been eating very little over the last several weeks and having general failure to thrive and weakness. She had a TAVR and coronary stent in 2023 in [facility] She was admitted to [place] recently for hyponatremia and had another admission to [facility] with a component of hyponatremia as well. Family is working on trying to centralize her care in 1 healthcare system, they are going to try to work with [facility]. The patient also has some cognitive impairment and is not very talkative. She denies any pain concerns. She does use a walker, or states that she has been doing relatively well with this. She does have chronic leg edema going back several years. She also has chronic anemia in his taking iron syrup, and iron infusions in the past. There was a discussion regarding recommendations for endoscopy when she was recently admitted at [facility]. She recently had her Brilinta discontinued by Cardiology which should allow for an endoscopy in the near future. Hospital course: 01/08: SIGNIFICANT EVENT: She developed probable flash pulmonary edema at about 1300 on January 08. She required oxygen for sats near 80%. Chest x-ray was suggestive of mild pulmonary edema. She was diuresed and improved rapidly. This happened after receiving saline at 50 mL an hour overnight. Echo reveals diastolic heart failure from [facility] and a repeat EF was obtained this morning with results pending. My wet read looks like she still has normal ventricular function. Discussion with Nephrology: I discussed this with [facility] Nephrology who reviewed her case at [facility]. At that time she presented with ANNEL and had a creatinine of 3.0. She also had evidence of SIADH with a urine sodium of 38 and osmolality 331 with a serum sodium of 129. Recommendations were to try diuresis with Lasix 20 IV b.i.d. and add urea powder 15 g daily. Unfortunately powders not available at this hospital. Fluid restriction at 1 L day was also recommended. Her breathing has improved after Lasix, she has some right knee pain. No other complaints. 01/09: Her sodium remains unchanged at 121 with a potassium of 4.6 and a creatinine of 0.92. The calcium is 10.4. Her ejection fraction on the limited echocardiogram was 65-70%. The blood pressure is 157/70. The current plan is discharge to [facility] on 01/10 or 01/12 once bed availability and insurance approval arrives. 01/10: Fairly well but sodium still 121 01/11: Sodium improved to 121. Patient is feeling well notably patient has been continued on valsartan which will impair correction of sodium by inhibiting aldosterone release this was discontinued Review of systems: Physical exam: Echocardiogram: Normal LV size and wall thickness. Normal wall motion and LV systolic function. Ejection fraction is 65-70%. Compared to prior echo November 11, 2024, LV function is stable. Assessment and plan: 1. Flash pulmonary edema (acute diastolic heart failure), new and active. * Cautious with volume load 2. 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 * Fluid restriction Lasix and salt tablets * Discontinue valsartan (impedes sodium retention by aldosterone by inhibiting aldosterone release in response to vasopressin) 3. Cognitive impairment, stable. 4. CAD with history of stenting, stable. 5. Chronic recurrent anemia and iron-deficiency, active. 6. Aortic stenosis with history of TAVR, 2023. Plan: Transfer to [facility] in [facility] 01/12 once bed availability and insurance approval arrives. Full code. Time-Based Coding :: 35 minutes spent with patient and on the chart (including review of chart, obtaining history, exam, reviewing outside data, placing orders, documenting exam and treatment plan, and counseling patient) Exam Vital Signs (past 8 hours): - 01/11/25 07:00 01/11/25 08:00 01/11/25 09:01 Temperature 97.2 F L Pulse Rate 65 66 Respiratory Rate 16 Blood Pressure 163/72 H 148/70 H Pulse Oximetry 96 Oxygen Delivery Method Room Air Oxygen Delivery Method Room Air Oxygen Flow Rate 0 Objective Labs 01/08/25 04:30 01/11/25 05:46 Labs: Laboratory Results - last 24 hr 01/10/25 01/11/25 01/11/25 15:13 05:46 07:45 Sodium 123 L Potassium 4.5 Chloride 98 Carbon Dioxide 23 BUN 26 H Creatinine 0.95 Estimated GFR > 60 BUN/Creatinine Ratio 27.4 H Glucose 99 POC Whole Bld Glucose 123 H Calcium 10.4 H Urine Color Yellow Urine Appearance Clear Urine pH 5.5 Ur Specific [place] 1.015 Urine Protein 1+ H Urine Glucose (UA) Negative Urine Ketones Negative Urine Occult Blood Negative Urine Nitrate Negative Urine Bilirubin Negative Urine Urobilinogen 0.2 Ur Leukocyte Esterase Trace H Urine RBC None seen Urine WBC 5-10/hpf H Ur Squamous Epith Cells 0-1 /hpf Urine Bacteria Few (2-10) H Hyaline Casts 1-5/lpf Ur Culture Indicated? Specimen cultured Vol Urine Centrifuged 10ml (spun) [facility] Social History (Updated 01/09/25 @ 15:31 by Grzegorz Pérez MD) marital status: details: Lives in [facility] with her . Her daughter is an undertaker assistant prin household members: spouse Assessment & Plan Time-Based Coding :: [TOTAL MINUTES] spent with patient and on the chart (including review of chart, obtaining history, exam, reviewing outside data, placing orders, documenting exam and treatment plan, and counseling patient) on [DATE].
[2025-01-11] MEDS: ATORVASTATIN 20 MG TABLET 40 MG PO (20:27)
[2025-01-12 04:00] VITALS: BP 158/71; PULSE 73; RESP 17; TEMP 36.2; O2SAT 95
[2025-01-12] MEDS: LEVOTHYROXINE 50 MCG TABLET PO (06:08)
[2025-01-12] MEDS: PANTOPRAZOLE DR 20 MG TABLET PO (06:08)
[2025-01-12 08:29] VITALS: BP 191/78; PULSE 85
[2025-01-12] MEDS: HEPARIN 5,000 UNIT/ML VIAL 5000 UNIT SUBCUT (08:29)
[2025-01-12] MEDS: SODIUM CHLORIDE 1,000 MG TABLET 1000 MG PO (08:29)
[2025-01-12] MEDS: AMLODIPINE 5 MG TABLET 2.5 MG PO (08:29)
[2025-01-12] MEDS: LIDOCAINE 5% PATCH 1 EACH TOP (08:29)
[2025-01-12] MEDS: DOCUSATE 100 MG CAPSULE PO (08:29)
[2025-01-12] MEDS: METOPROLOL ER 25 MG TABLET PO (08:29)
[2025-01-12] MEDS: ESCITALOPRAM 10 MG TABLET 5 MG PO (08:33)
[2025-01-12] MEDS: ASPIRIN EC 81 MG TABLET PO (08:33)
[2025-01-12] MEDS: SODIUM CHLORIDE 0.9% FLUSH 10 ML IV (08:33)
--- NOTE | 2025-01-12 09:44 | PM.DS.1 ---
History of Present Illness History of Present Illness Date Patient Seen: 01/12/25 Chief complaint: Hyponatremia Narrative: Chief complaint: Hyponatremia and weakness History of present illness: 01/07: 74-year-old female with a history of recurrent hyponatremia. She was seen at [facility] Emergency Department and transferred here as they had no available beds. Her sodium was a proximally 117. She lives in a local apartment with her . She had recently been discharged from inpatient rehab in [place] and had follow up blood tests drawn 2 days ago. These revealed a severe hyponatremia. She does have a history of recurrent hyponatremia going back several years. She was been eating very little over the last several weeks and having general failure to thrive and weakness. She had a TAVR and coronary stent in 2023 in [facility]. She was admitted to [place] recently for hyponatremia and had another admission to [facility] with a component of hyponatremia as well. Family is working on trying to centralize her care in 1 healthcare system, they are going to try to work with [facility]. The patient also has some cognitive impairment and is not very talkative. She denies any pain concerns. She does use a walker, or states that she has been doing relatively well with this. She does have chronic leg edema going back several years. She also has chronic anemia in his taking iron syrup, and iron infusions in the past. There was a discussion regarding recommendations for endoscopy when she was recently admitted at [facility]. She recently had her Brilinta discontinued by Cardiology which should allow for an endoscopy in the near future. Hospital course: 01/08: SIGNIFICANT EVENT: She developed probable flash pulmonary edema at about 1300 on January 08. She required oxygen for sats near 80%. Chest x-ray was suggestive of mild pulmonary edema. She was diuresed and improved rapidly. This happened after receiving saline at 50 mL an hour overnight. Echo reveals diastolic heart failure from [facility] and a repeat EF was obtained this morning with results pending. My wet read looks like she still has normal ventricular function. Discussion with Nephrology: I discussed this with [facility] Nephrology who reviewed her case at [facility]. At that time she presented with ANNEL and had a creatinine of 3.0. She also had evidence of SIADH with a urine sodium of 38 and osmolality 331 with a serum sodium of 129. Recommendations were to try diuresis with Lasix 20 IV b.i.d. and add urea powder 15 g daily. Unfortunately powders not available at this hospital. Fluid restriction at 1 L day was also recommended. Her breathing has improved after Lasix, she has some right knee pain. No other complaints. 01/09: Her sodium remains unchanged at 121 with a potassium of 4.6 and a creatinine of 0.92. The calcium is 10.4. Her ejection fraction on the limited echocardiogram was 65-70%. The blood pressure is 157/70. The current plan is discharge to [facility] on 01/10 or 01/12 once bed availability and insurance approval arrives. 01/10: Fairly well but sodium still 121 01/11: Sodium improved to 121. Patient is feeling well notably patient has been continued on valsartan which will impair correction of sodium by inhibiting aldosterone release this was discontinued 01/12: Patient much improved symptomatically amlodipine increased to 5 mg p.o. b.i.d. valsartan has been discontinued be transferred to assisted living Review of systems: Physical exam: Echocardiogram: Normal LV size and wall thickness. Normal wall motion and LV systolic function. Ejection fraction is 65-70%. Compared to prior echo November 11, 2024, LV function is stable. Assessment and plan: 1. Flash pulmonary edema (acute diastolic heart failure), new and active. Cautious with volume load 2. 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 Fluid restriction Lasix and salt tablets Discontinue valsartan (impedes sodium retention by aldosterone by inhibiting aldosterone release in response to vasopressin) 3. Cognitive impairment, stable. 4. CAD with history of stenting, stable. 5. Chronic recurrent anemia and iron-deficiency, active. 6. Aortic stenosis with history of TAVR, 2023. Plan: Transfer to [facility] in [facility] 01/12 once bed availability and insurance approval arrives. Full code. Time-Based Coding :: 35 minutes spent with patient and on the chart (including review of chart, obtaining history, exam, reviewing outside data, placing orders, documenting exam and treatment plan, and counseling patient) Discharge Providers Provider Date of admission: 01/07/25 08:44 Discharge Date: 01/12/25 Primary care physician: Doctor Dorcas MD Consults: 01/07/25 11:01 Consult to Inpatient Wound Care Nurse Routine Comment: Reason for consultation: admitted with stage 2 pressure injury coccyx Has provider been notified: Yes 01/08/25 10:15 Consult to Occupational Therapy Evaluate & Treat Comment: Physician Instructions: Evaluate and treat Consult to Physical Therapy Evaluate & Treat Comment: Physician Instructions: Evaluate and Treat 01/08/25 14:29 Consult to Wound Care Routine Comment: Stage 2 wound Coccyx Consulting Provider: Harsh Damian 01/12/25 09:25 Consult to Home Health Routine Comment: Reason For Exam: RN/PT/OT Discharge provider: Freedom Dawson MD Exam Vital Signs (past 8 hours): - 01/12/25 04:00 01/12/25 08:29 Temperature 97.2 F L Pulse Rate 73 85 Respiratory Rate 17 Blood Pressure 158/71 H 191/78 H Pulse Oximetry 95 Oxygen Flow Rate 0 Oxygen Delivery Method Room Air Oxygen Flow Rate 0 Objective Labs 01/08/25 04:30 01/11/25 05:46 PFSH Social History (Updated 01/09/25 @ 15:31 by Grzegorz Pérez MD) marital status: details: Lives in [facility] with her . Her daughter is an legal administrative assistant prin household members: spouse Discharge Plan Discharge Plan Patient Disposition: Assisted Living Other facility: [facility] Discharge orders & Medications Discharge Orders: Discharge (Order); Ordered 01/12/25 Ordered By: Freedom Dawson Prescriptions: New polyethylene glycol 3350 17 gram Powder In Packet 17 g PO DAILY PRN (Reason: Constipation) Qty: 30 0RF amlodipine 5 mg tablet 5 mg PO BID Qty: 180 0RF Continued acetaminophen [Aminofen] 325 mg tablet 650 mg PO Q6H PRN (Reason: pain) calcium carbonate [Calcium 500] 500 mg calcium (1,250 mg) tablet,chewable 1,000 mg PO DAILY cholecalciferol (vitamin D3) 25 mcg (1,000 unit) capsule 1,000 unit PO DAILY ferrous sulfate drops 15 mg PO DAILY lidocaine 4 % adhesive patch,medicated 1 patch topical DAILY albuterol 90 mcg/actuation aerosol 90 mcg inhalation .Q4 PRN (Reason: wheezing) aspirin 81 mg capsule 81 mg PO DAILY levothyroxine 50 mcg tablet 50 mcg PO DAILY furosemide 20 mg tablet 20 mg PO QAM omeprazole 20 mg capsule,delayed release(/EC) 20 mg PO DAILY metoprolol succinate 25 mg tablet extended release 24 hr 25 mg PO DAILY Patient Comments: at night rosuvastatin 20 mg tablet 20 mg PO ONCE PM escitalopram oxalate [Lexapro] 5 mg tablet 5 mg PO DAILY hydrocodone-acetaminophen 5-325 mg tablet 1 tab PO Q4H PRN (Reason: moderate pain) Qty: 12 0RF Discontinued cephalexin 250 mg capsule 250 mg PO DAILY magnesium oxide 400 mg magnesium capsule 400 mg PO BEDTIME methocarbamol 500 mg tablet 500 mg PO BID doxazosin 4 mg tablet 4 mg PO DAILY nifedipine 30 mg tablet extended release 24hr 30 mg PO DAILY nifedipine 60 mg tablet extended release 24hr 60 mg PO DAILY valsartan 160 mg tablet 160 mg PO BID Follow up/Referrals: Miscellaneous,Doctor, [Primary Care Provider, Medical] Visit Report/Discharge Packet Stand Alone Forms: Patient Portal/API, Stroke Signs & Symptoms Discharge Data Primary Care Provider: Doctor Dorcas
[2025-01-12] MEDS: AMLODIPINE 5 MG TABLET PO (10:35)
--- NOTE | 2025-01-12 11:01 | CM.DPNOTE ---
Addendum entered by VINCENT Rob 01/12/25 14:40: got call from Elisabeth, need scripts for amlodipine and hydrocodone. this SLIP OPERATOR lost the scripts in other paperwork and did not send the hard copy scripts with pt. per Elisabeth, spouse can pick them up from [facility] in [place]. SLIP OPERATOR faxed found scripts (f [phone]) in to pharmacy in [place]. shredded hard copies of meds. SL Original Note: DCP note SLIP OPERATOR reviewed EMR set to dc today to [facility] with Count includes the [facility] to follow. SLIP OPERATOR completed HH order. emailed Yasmany/Joseph from [facility] order/f2f/dc summary. SLIP OPERATOR faxed ([phone]) signed med list and signed dc summary. Per Elisabeth (p [phone]) at [facility], no RN report needed. SLIP OPERATOR placed dc summary and signed med list in dc folder packet in chart. per Scarlett SLIP OPERATOR got a message from family that needed help with transport, had [facility] at [facility] but that is too late for facility. SLIP OPERATOR called [facility], no availability today per Leonard. SLIP OPERATOR called [facility], spoke with Will, arranged for 11am p/u cost $281. SLIP OPERATOR updated spouse in room on plan. remains in agreement. called [facility] to pay. P: DC today to [facility] with [facility] at 11am. CM team will continue to follow as needed for DCP coordination VINCENT Rob
--- NOTE | 2025-01-12 11:22 | PC.NURSE ---
Pt discharged to outside facility via wheelchair with medical transport. No facility number to give report to per case management. IV removed. All belongings sent with pt and . Pt stable upon discharge.
== END 2025-01-12 11:47 | DRG 643 ==
PROVIDERS: Internal Medicine; Admitting Provider Hospitalist; Referring Provider Hospitalist; Visit Provider Hospitalist
DX: E22.2 Syndrome of inappropriate secretion of antidiuretic hormone (principal); I50.31 Acute diastolic (congestive) heart failure; J81.0 Acute pulmonary edema; I25.10 Atherosclerotic heart disease of native coronary artery without angina pectoris; D50.9 Iron deficiency anemia, unspecified; I35.0 Nonrheumatic aortic (valve) stenosis; G31.84 Mild cognitive impairment of uncertain or unknown etiology; Z95.2 Presence of prosthetic heart valve; Z95.5 Presence of coronary angioplasty implant and graft
CPT/HCPCS: 36415; 71045; 80048; 81001; 82962; 83935; 84300; 85014; 85018; 85027; 87086; 87797; 93307; 94640; 97163; 97167; J1644; J1938; J2405; J7613